=== PATIENT | male | born 1960 ===

== ENCOUNTER 2023-07-16 03:07 | Day surgery (SDC) | payer OTHER, SELFPAY ==
[2023-07-10 10:59] VITALS: BMI 28.9
--- NOTE | 2023-07-10 10:59 | PC.NURSE ---
Addendum entered by Dixie Kay RN 07/13/23 12:44: CALLED PT TO CONFIRM HE IS AWARE TO HOLD VITAMINS/SUPPLEMENTS X3 DAYS. STATES OFFICE TOLD HIM TO HOLD X 1WEEK SO HE HAS NOT TAKEN MULTIVITAMIN SINCE MONDAY 07/09. Original Note: Report to the Outpatient Waiting Room, entrance under the green pavilion located off [facility], at time _1030__ on date _07/16/23___. Planned Procedure Time: _1230__. Time changes happen often and if your time is changed the preop area will call you the afternoon before. - You and your visitor will be asked to self-screen and do not enter if you have any COVID symptoms. - A mask is optional within the hospital at this time. Patients may have clear liquids (water, carbonated beverages, clear teas, apple juice) until 3 hours prior to surgery with a maximum of 20 ounces. - No food from midnight until time of surgery - Infants may have breast milk until 4 hours before surgery, formula 6 hours prior to surgery. - Children will be allowed to drink immediately following surgery. If applicable, please bring a bottle or sippy cup to assist with drinking. Juice, water, soda, and popsicles are readily available. For infants on formula, please bring formula the day of surgery. Pacifiers are allowed. Take the following medications with a SIP of water the morning of surgery: __None___ DO NOT STOP ANY OF YOUR OTHER PRESCRIPTION MEDICATIONS PRIOR TO SURGERY ?EXCEPT THE FOLLOWING Medications to discontinue per physician Date to take last dose Please no make-up, nail gabonese, hairspray, perfume, deodorant, or body powder the day of surgery. No jewelry (including any body piercings) or valuables the day of surgery, leave them at home. Please take a shower or bath the night before, or the morning of, surgery with an antibacterial soap. Wear comfortable, loose fitting clothing. Children are encouraged to wear pajamas. - Jewelry must be removed prior to entering the operating room. Rings and piercings that are not removed may be cut off. - The hospital will not accept responsibility for valuables. - Please leave all valuables, including medications, at home the day of surgery. If you are going home after surgery, a licensed motor coach bus driver must drive you home. - NO public transportation without another adult if you receive anesthesia. - We recommend that an adult stay with you for 24 hours following discharge. - We also recommend that you do not drive, make important decision, drink alcoholic beverages, or take any drugs that were not prescribed by your health care provider for at least 24 hours after your discharge time. For Pediatric surgeries, we recommend two adults accompany the child home. Follow any additional instructions given to you from your surgeon. If you or anyone in your household have experienced Covid symptoms in the past week, please notify your surgeon or the nurse liaison at the phone number below for possible testing. Telephone instructions given to _patient__and asked if any additional questions and then verbalized understanding. Patient advised to call surgeon office or pre surgery nurse liaison [phone] if any additional questions.
[2023-07-16] VITALS (7 sets, daily range): BP systolic 126–159; BP diastolic 80–97; PULSE 53–72; RESP 16–22; TEMP 36.2; O2SAT 95–100; BMI 29.0
--- NOTE | 2023-07-16 06:20 | WPDHPUPDATE1 ---
History and Physical Update Update Date/Time: 07/16/23 06:20 History and Physical has been reviewed, including an updated exam of the patient. There are NO changes in the patient's condition. Risks, benefits, and alternatives have been discussed and questions answered. Patient agrees to proceed with procedure.
--- NOTE | 2023-07-16 11:01 | ECG_ITS ---
Measurements Intervals [place] Rate: 63 P: 56 NV: 140 QRS: -31 QRSD: 137 T: 30 QT: 408 QTc: 421 Interpretive Statements SINUS RHYTHM LEFT AXIS DEVIATION RIGHT BUNDLE BRANCH BLOCK ABNORMAL ECG NO PREVIOUS ECG AVAILABLE FOR COMPARISON Electronically Signed On 07-16-2023 11:24:36 [employer]PECT[employer] by Khris Steven D.O.
--- NOTE | 2023-07-16 11:19 | WPDANESEPPF ---
Anes - Initial Pre Proc Eval Procedure: Operation Date: 07/16/23 12:30 Proposed Procedures p Right Hydrocelectomy, - John Aguilera MD s Left Spermatocelectomy - John Aguilera MD Date/Time: 07/16/23 11:19 Surgeon: John Aguilera MD Pre Op Diagnosis: hydrocele, spermatocele Patient Data Age: 62 Gender: M Height: 1.73 m Weight: 86.3 kg Allergies Allergy/AdvReac Type Severity Reaction Status Date / Time No Known Allergies Allergy Mild Verified 07/10/23 10:49 Home Medications Medication Instructions Recorded Confirmed Type multivitamin 1 tablet PO DAILY 04/29/21 07/10/23 History tamsulosin 0.4 mg capsule (Flomax) 0.4 mg PO DAILY #30 caps 04/27/23 07/10/23 Rx Patient hx anesthesia problems: post op nausea/vomiting Family hx anesthesia problems: none Results Review: All pre-operative results and documents have been reviewed as part of the pre-operative evaluation. [facility] Past Medical History Medical History Acute non-recurrent maxillary sinusitis Adult BMI 28.0-28.9 kg/sq m Benign colon polyp (~02/2017) [address] Terry, February,. BMI 29.0-29.9,adult BMI 30.0-30.9,adult BPH without obstruction/lower urinary tract symptoms Colon cancer screening Cystocele, male Encounter for wellness examination in adult Leukocytosis (04/09/22) WBC slightly elevated at 12.6 on 04/09/2022. WBC normal at 9.1 on 04/30/2023. Lung cancer screening declined by patient Overweight (BMI 25.0-29.9) Prostate cancer screening PSA 1.94 on 04/09/2022. PSA 1.78 on 04/30/2023. Tobacco use disorder, continuous 1-1/2 packs to 2 packs of cigarettes daily starting at age 16. Vitamin D deficiency Level low at 29 on 04/29/2021. Level normal at 45 on 04/30/2023. Surgical History Surgical History (Updated 07/16/23 @ 11:22 by Lokesh Marc MD) H/O inguinal hernia repair Family History Family History Mother Patient's mother is , Onset Age: 85 Grandparent Acute myocardial infarction, Onset Age: 40 Family history of malignant neoplasm, Onset Age: 87 Family history of malignant neoplasm of kidney, Onset Age: 84 Father Family history of primary malignant neoplasm of liver, Onset Age: 85 Social History Social History Smoking packs per day: 1.5 Smoking cigarettes per day: 30.0 Years smoked: 40 Smoking pack-years: 60.00 Smoking status: Current every day smoker Tobacco type: cigarettes Alcohol intake: current Alcohol use details: Pt stated may go out couple times a year and have one drink Substance use: never Substance use type: does not use Current Housing: Decline to Answer Concerned About Future Housing: Decline to Answer Difficulty Paying Gas/Electric Bills: Decline to Answer Difficulty Paying for Meds: Decline to Answer Currently Unemployed: Decline to Answer Education: Decline to Answer Difficulty w/ Childcare or Family Care: Decline to Answer Living arrangements: with family Spiritual care concerns: No Anes - Eval Final PreProcedure Day of Procedure 07/16/23 11:19 Patient weight: overweight Heart: regular rate and rhythm Lungs: clear to auscultation Airway: Mallampati scale class II Neurological: alert and oriented Last oral intake: >/= 8 hours ASA classification: III Emergent: no Anesthetic plan: proceed Results Review: All pre-operative results and documents have been reviewed as part of the pre-operative evaluation. Informed Consent: The patient's anesthetic plan and its attendant risks and benefits were discussed with the patient/family/POA. Questions were solicited and answers provided to the satisfaction of the patient/family/POA.
[2023-07-16] MEDS: LACTATED RINGERS 1,000 ML 30 ML IV CONT (11:30)
[2023-07-16] MEDS: SCOPOLAMINE 1.5 MG PATCH TRANSDERM (11:36)
[2023-07-16] MEDS: ceFAZolin 2 GM/D5W 50 ML 2 GM/50 ML BAG IVPB (12:33)
[2023-07-16] MEDS: LIDOCAINE HCL 1% LOCAL INJ 10 ML VIAL 20 ML INFILTRATE (13:01)
--- NOTE | 2023-07-16 13:28 | W.PM.PROC2 ---
Procedure Note - Detailed Date of Procedure 07/16/23 Pre-op Diagnosis Right hydrocele, left spermatocele Post-op Diagnosis Other ( Bilateral spermatocele) Procedure Performed Bilateral spermatocelectomy Surgeon John Aguilera MD Anesthesia General Description of Procedure Patient is brought to the operative suite was prepped and draped in routine sterile fashion while in dorsal lithotomy position after the uneventful induction of a general LMA anesthetic. Incision is made in the median raphe of the scrotum dissection was 1st carried into the right tunica vaginalis. What I had initially thought we right hydrocele turned out to be a large right spermatocele. This is dissected to near its origin in the right epididymis and excised. This spermatocele sac is sent for pathological evaluation. Hemostasis is obtained with electrocautery and the right testicle was carefully placed in an orthotopic position in the right hemiscrotum. Left testicle was delivered through this same midline incision. On this side we had correctly identified, by physical exam, a large left spermatocele. It is dissected to its origin in a similar fashion and excised. Again hemostasis is obtained and the testicle was returned to its normal position in the left hemiscrotum. Dartos muscle was closed with running 4-0 chromic and skin is, likewise, closed with running 4-0 chromic. Blood loss was less than 10 cc. He tolerated the procedure well and was taken recovery room in good condition Drains No Packing No Pathology None sent Complications No immediate complications Condition Stable Disposition PACU
[2023-07-16] MEDS: oxyCODONE HCL (*CRX) 5 MG TAB IR PO (14:32)
== END 2023-07-16 15:00 | disposition home or self-care (01) ==
PROVIDERS: PCP Family Medicine; Visit Provider Urology
PROC: (CPT 54840; 2023-07-16 12:30)
DX: N43.42 Spermatocele of epididymis, multiple (principal); N40.0 Benign prostatic hyperplasia without lower urinary tract symptoms; F17.210 Nicotine dependence, cigarettes, uncomplicated
CPT/HCPCS: 54840; 88304; 93005; A9270; J0690; J1100; J1200; J2250; J2405; J2704; J3010; J7120